=== PATIENT | male | born 1990 | race Caucasian/White ===

== ENCOUNTER 2017-01-02 09:44 | Emergency (ER) | payer OTHER ==
[2017-01-02] MEDS ORDERED: KETOROLAC 60 MG/2 ML VIAL IM STA (11:02)
--- NOTE | 2017-01-02 11:04 | ED ---
Neck Injury/Pain HPI - General Chief Complaint: Neck Pain/Injury Stated Complaint: neck and shoulder pain Time Seen by Provider: 01/02/17 10:06 Source: RN notes reviewed Mode of arrival: ambulatory Limitations: no limitations - History of Present Illness Initial Comments: Patient is a 26-year-old male presents to the emergency room for evaluation of neck pain. Patient states he woke up about 4 days ago with pain on the right side of his neck reading to his shoulder. Patient states the pain does not subside so he decided to come here for evaluation. Patient denies taking anything for his symptoms. Patient states he's having 7 out of 10 pain. Patient denies any tingling in his fingers. Patient states his pain is worse whenever he tries to move his shoulder move his neck from left to right. Patient denies any specific injury to his neck or shoulder. Patient denies any recent heavy lifting or changes in physical activity. - Related Data Previous Rx's Medication Instructions Recorded Naproxen [Naprosyn] 500 mg PO Q12HR PRN #20 tab 01/02/17 Orphenadrine [Norflex] 100 mg PO Q12H PRN #12 tablet.er 01/02/17 Allergies Allergy/AdvReac Type Severity Reaction Status Date / Time No Known Allergies Allergy Verified 01/02/17 10:10 Review of Systems ROS Statement: Those systems with pertinent positive or pertinent negative responses have been documented in the HPI. ROS Other: All systems not noted in ROS Statement are negative. Past Medical History Past Medical History: No Reported History History of Any Multi-Drug Resistant Organisms: None Reported Past Surgical History: No Surgical Hx Reported Past Psychological History: No Psychological Hx Reported Smoking Status: Never smoker Past Alcohol Use History: Occasional Past Drug Use History: None Reported General Exam - General Exam Comments Initial Comments: Sitting in exam room, no acute distress. Limitations: no limitations General appearance: alert, in no apparent distress Head exam: Present: atraumatic, normocephalic, normal inspection Eye exam: Present: normal appearance, PERRL, EOMI Pupils: Present: normal accommodation Neck exam: Present: normal inspection, tenderness (Tenderness on palpating over right trapezius muscle into the shoulder), full ROM Respiratory exam: Present: normal lung sounds bilaterally. Absent: respiratory distress Cardiovascular Exam: Present: regular rate, normal rhythm, normal heart sounds Extremities exam: Present: normal inspection Back exam: Present: normal inspection Neurological exam: Present: alert, oriented X3, CN II-XII intact, normal gait Psychiatric exam: Present: normal affect, normal mood Skin exam: Present: warm, dry, intact, normal color. Absent: rash Course Vital Signs 01/02/17 01/02/17 09:51 12:37 Temperature 97.6 F 98.5 F Pulse Rate 87 88 Respiratory 16 18 Rate Blood Pressure 126/68 170/81 O2 Sat by Pulse 97 96 Oximetry Medical Decision Making - Medical Decision Making Patient is a 26-year-old male presents emergency room for evaluation of right- sided neck pain. Symptoms consistent with muscle spasms. Place patient on muscle relaxers and him follow-up with his primary care provider. Patient has no neuro deficits at this time. Patient states she understands everything that was discussed with him. Return parameters discussed. Case discussed with Dr. Pink. - Radiology Data Radiology results: report reviewed, image reviewed Disposition Clinical Impression: Cervical muscle strain Disposition: HOME SELF-CARE Condition: Good Instructions: Cervical Strain (ED) Additional Instructions: Warm moist heat. Take pain medications as needed. Please follow up with primary care provider in 1-2 days. If any new symptom arises or symptoms worsen , return to ER as soon as possible. Prescriptions: Naproxen [Naprosyn] 500 mg PO Q12HR PRN #20 tab PRN Reason: Pain Orphenadrine [Norflex] 100 mg PO Q12H PRN #12 tablet.er PRN Reason: Pain Referrals: None,Stated [Primary Care Provider] - 1-2 days Time of Disposition: 12:27
--- NOTE | 2017-01-02 11:53 | XR ---
EXAMINATION TYPE: XR cervical spine comp DATE OF EXAM: 01/02/2017 CLINICAL HISTORY: pain COMPARISON: NONE TECHNIQUE: Frontal, lateral, oblique, swimmers, and open mouth view of the cervical spine are obtaine d. FINDINGS: The cervical spine is visualized in its entirety from C1 thru the top of T1 level. There i s reversal of the normal cervical lordosis which can be seen in patients with muscle spasticity. I do not see evidence for fracture or malalignment. The pre-vertebral soft tissue appears within normal l imits. Disc spaces are well preserved. The C1-C2 articulation is unremarkable on the open mouth view. The oblique images are within normal limits. IMPRESSION: No acute fracture or dislocation is seen in the cervical spine. Correlate for muscle spa sticity.
[2017-01-02 12:39] VITALS: BP 170/81; PULSE 88; RESP 18; TEMP 98.5
== END 2017-01-02 12:39 | disposition home or self-care (01) ==
LOC: EC 09:44
DX: S16.1XXA Strain of muscle, fascia and tendon at neck level, initial encounter (principal); X58.XXXA Exposure to other specified factors, initial encounter
CPT/HCPCS: 72050; 99283; 96372; J1885

== ENCOUNTER → 2021-02-19 | Outpatient (CLI) | payer OTHER ==
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
== END ==
LOC: SLEEP 15:13
PROVIDERS: ATTEND Internal Medicine Critical Care Medicine
DX: G47.10 Hypersomnia, unspecified (principal); E66.01 Morbid (severe) obesity due to excess calories; F51.12 Insufficient sleep syndrome; Z68.44 Body mass index [BMI] 60.0-69.9, adult
CPT/HCPCS: 99211

== ENCOUNTER → 2021-06-18 | Outpatient (CLI) | payer OTHER ==
[2021-06-18 14:10] VITALS: BP 146/89; PULSE 96; TEMP 98.3; BMI 61.9
--- NOTE | 2021-06-18 15:27 | P.HPBAR ---
Bariatric H&P - History & Physicial H&P Date: 06/18/21 History & Physicial: Visit/CC: initial clinic visit Patient initial contact: Initial weight: Initial weight in pounds: Height: 5 ft 8 in Initial BMI: Last weight: Current weight: 184.612 kg Current weight in pounds: 407.00 Current BMI: 61.9 [place] body weight (based on NIH guidelines): 69.853 kg Excess body weight loss: The patient is a 30 year-old M who presents for Bariatric Assessment. Patient here interested in sleeve gastrectomy. Patient has comorbidities including sleep apnea chronic back pain ulcer arthritis borderline diabetes mild reflux. No history of DVT or dysphagia. BMI 61. No tobacco use. Patient read wired complete twelve-month supervised weight loss. No prior surgeries. Review of Systems The patient denies any acute changes in vision or hearing, no dysphagia or o dynophagia, no chest pain or shortness of breath, no dysuria or hematuria, no headache, no runny nose, no rectal bleeding or melena, no unexplained weight loss Past Medical History Past Medical History: No Reported History History of Any Multi-Drug Resistant Organisms: None Reported Past Surgical History: No Surgical Hx Reported Smoking Status: Never smoker Surgical - Exam Vital Signs Temp Pulse BP 98.3 F 96 146/89 06/18/21 13:54 06/18/21 13:54 06/18/21 13:54 Physical exam: General: Well-developed, well-nourished HEENT: Normocephalic, sclerae nonicteric Abdomen: Nontender, nondistended Extremities: No edema Neuro: Alert and oriented Bariatric Assessment & Plan (1) Morbid obesity with BMI of 60.0-69.9, adult Narrative/Plan: 30-year-old male with morbid obesity and associated comorbidities. Patient is interested in sleeve gastrectomy. Risks, benefits, and expected weight loss of sleeve gastrectomy and gastric bypass discussed in detail. The risks of ble eding, infection, stenosis, stricture, leak, abscess, fistula formation, peritonitis, poor weight loss, reflux, vomiting, conversion to an open procedure, aborting sleeve gastrectomy, OH, PE, DVT, and were discussed. The patient understands and wishes to proceed. Patient would like to see dietitian at this time. This will be arranged. Patient will complete twelve- month supervised weight loss. Plan EGD towards the tail end of that supervised weight loss. Status: Acute Bariatric Checklist Checklist: Plan: Checklist: EGD: 1. Hiatal hernia: 2. H. Pylori: HgbA1c: Vitamin D: Smoking: Never smoker Primary care physician referral: Psychiatry clearance: Cardiology clearance: Sleep study: Diet journal: VTE risk score: VTE risk level: Rehab needs at discharge:
[2021-06-18 15:55] LABS: HCT 39.6 % (39.0-53.0); HGB 12.9 gm/dL (13.0-17.5); MCH 31.3 pg (25.0-35.0); MCHC 32.6 g/dL (31.0-37.0); MCV 95.7 fL (80.0-100.0); Mean Platelet Volume 8.4; Platelet Count 238 k/uL (150-450); RBC 4.14 m/uL (4.30-5.90); RDW 13.9 % (11.5-15.5); WBC 9.9 k/uL (3.8-10.6)
[2021-06-19 03:22] LABS: ALT 46 U/L (10-49); AST 37 U/L (14-35); African American GFR (CKD) 151.1 (60.0-200.0); Albumin 4.5 g/dL (3.8-4.9); Alkaline Phosphatase 68 U/L (41-126); BUN/Creat Ratio 12.21 Ratio (12.00-20.00); Carbon Dioxide 25.5 mmol/L (21.6-31.8); Chloride 99 mmol/L (96-109); Globulin 2.5 g/dL (1.6-3.3); Glucose 104 mg/dL (70-110); Iron 66 ug/dL (65-175); Non-African American GFR(CKD) 130.4 (60.0-200.0); Potassium 4.2 mmol/L (3.5-5.5); Sodium 140 mmol/L (135-145); Total Protein 6.9 g/dL (6.2-8.2)
[2021-06-20 10:58] LABS: Anabasine Urine <2.0 ng/mL (<2.0)
== END ==
LOC: BARWHC3 13:21
PROVIDERS: ATTEND Surgery
DX: E66.01 Morbid (severe) obesity due to excess calories (principal); M19.90 Unspecified osteoarthritis, unspecified site; K90.89 Other intestinal malabsorption; E55.9 Vitamin D deficiency, unspecified; Z68.44 Body mass index [BMI] 60.0-69.9, adult
CPT/HCPCS: 84425; 80053; 82607; 82746; 83540; 85027; 82306; 83036; 93005; 36415; G0480; G0463; 80323; 99211

== ENCOUNTER 2021-10-08 07:36 | Day surgery (SDC) | payer OTHER ==
[2021-10-04 12:03] VITALS: BMI 62.6
[~2021-10-08 07:36] MED LIST: LACTATED RINGERS 1,000 ML IV SCH; LIDOCAINE 1% (10MG/ML) FOR IV START INTRADERMA PRN
[2021-10-08 07:57] VITALS: RESP 18; TEMP 98
[2021-10-08] MEDS ORDERED: PROPOFOL 10 MG/ML 20 ML VIAL IV ONE (08:16)
[2021-10-08] MEDS ORDERED: MIDAZOLAM 2 MG/2 ML VIAL ONE (08:16)
[2021-10-08] MEDS ORDERED: KETAMINE 10 MG/ML 20 ML VIAL ONE (08:16)
[2021-10-08] MEDS ORDERED: LIDOCAINE 1% INJ 10MG/ML (20 ML MDV) ONE (08:16)
[2021-10-08 08:18] LABS: Glucose,Whole Blood 129 mg/dL (75-99)
--- NOTE | 2021-10-08 08:18 | P.GSHP ---
History of Present Illness H&P Date: 10/08/21 Chief Complaint: GERD, presurgical 31-year-old male here today for upper endoscopy. Patient being seen for possible weight loss surgery. Patient with mild reflux. No dysphagia. Past Medical History Past Medical History: Asthma, Diabetes Mellitus, GERD/Reflux, Sleep Apnea/CPAP/BIPAP Additional Past Medical History / Comment(s): Seasonal allergies. Edema BLE. Uses CPAP. History of Any Multi-Drug Resistant Organisms: None Reported Past Surgical History: No Surgical Hx Reported Past Anesthesia/Blood Transfusion Reactions: No Reported Reaction Additional Past Anesthesia/Blood Transfusion Reaction / Comment(s): no previous anesthesia Past Psychological History: No Psychological Hx Reported Smoking Status: Never smoker Past Alcohol Use History: None Reported Additional Past Alcohol Use History / Comment(s): No alcohol in 1 year Past Drug Use History: Marijuana Additional Drug Use History / Comment(s): Uses occ - Past Family History Mother Family Medical History: No Reported History Medications and Allergies Home Medications Medication Instructions Recorded Confirmed Type Ergocalciferol [Vitamin D2 (1250 1,250 mcg PO WEEKLY 10/04/21 10/04/21 History Mcg = [id number] Iu)] Phentermine HCl [Adipex-P] 37.5 mg PO DAILY 10/04/21 10/04/21 History metFORMIN HCL [Glucophage] 500 mg PO BID 10/04/21 10/04/21 History Allergies Allergy/AdvReac Type Severity Reaction Status Date / Time No Known Allergies Allergy Verified 10/04/21 11:42 Surgical - Exam Vital Signs Temp Pulse Resp BP Pulse Ox 98 F 101 H 18 173/86 97 10/08/21 07:55 10/08/21 07:55 10/08/21 07:55 10/08/21 07:55 10/08/21 07:55 Physical exam: General: Well-developed, well-nourished HEENT: Normocephalic, sclerae nonicteric Abdomen: Nontender, nondistended Extremities: No edema Neuro: Alert and oriented Assessment and Plan (1) GERD (gastroesophageal reflux disease) Narrative/Plan: Will proceed with upper endoscopy. Current Visit: Yes Status: Acute Code(s): K21.9 - GASTRO-ESOPHAGEAL REFLUX DISEASE WITHOUT ESOPHAGITIS SNOMED Code(s): 277541759
--- NOTE | 2021-10-08 08:26 | P.PCN ---
Date of Procedure: 10/08/21 Procedure(s) Performed: Preoperative Dx: GERD, presurgical Postoperative Dx: Mild gastritis, retained food Procedure: EGD with Bx Anesthesia: Sedation Endoscopist: Dr. Siddiqui Specimens: Antrum Endoscopic Procedure: The patient was on the endoscopy table in the left decubitus position. The Olympus gastroscope was inserted into the oropharynx and passed under direct visualization to the region of the third portion of the duodenum. From that point the scope was slowly withdrawn inspecting all surfaces carefully. There were no neoplastic inflammatory or polypoid lesions throughout the duodenum. The pylorus was widely patent. The stomach was carefully inspected. There was food seen throughout the stomach. The patient had mild gastritis. A biopsy of the antrum took place to rule out H. pylori. Retroflexion revealed a normal hiatus. The esophagus was then carefully examined. There were no neoplastic inflammatory or polypoid lesions throughout the visualized esophagus. The patient was then taken to the recovery room in stable condition per anesthesia guidelines. Recommendations: Await biopsy results. Continue presurgical supervised weight loss visits. Patient may have some degree of gastroparesis. This will be discussed with the patient.
[2021-10-08 08:47] VITALS: BP 122/68; PULSE 90
== END 2021-10-08 09:02 | disposition home or self-care (01) ==
LOC: ORWHC2ENDO 07:36
PROVIDERS: ATTEND Surgery
DX: K29.70 Gastritis, unspecified, without bleeding (principal); K31.89 Other diseases of stomach and duodenum; J45.909 Unspecified asthma, uncomplicated; E11.9 Type 2 diabetes mellitus without complications; G47.33 Obstructive sleep apnea (adult) (pediatric); K21.9 Gastro-esophageal reflux disease without esophagitis
CPT/HCPCS: 43239; 88305; J2250; J2001; J2704

== ENCOUNTER → 2022-01-10 | Outpatient (CLI) | payer OTHER ==
--- NOTE | 2022-01-10 10:13 | FL ---
EXAMINATION TYPE: FL UGI air DATE OF EXAM: 01/10/2022 COMPARISON: None HISTORY: Pre bariatric surgery TECHNIQUE: Double contrast technique is utilized to evaluate the esophagus and stomach. Exam is limit ed to upright views due to patient body habitus. FINDINGS: Esophagus dilates to normal caliber and has normal contour of the gastroesophageal junction . Gastroesophageal junction opens to normal caliber. No intraluminal or extrarenal defects of the eso phagus are evident. There are a few tertiary contractions in possible weeks secondary contractions wi thin the distal esophagus during the exam compatible some presbyesophagus. Upright imaging of the stomach was performed. Orientation appears normal. There is some free spill in to the duodenum. IMPRESSION: 1. Some mild presbyesophagus not excluded. Esophagus otherwise appears unremarkable. 2. Limited imaging over the stomach appears unremarkable.
--- NOTE | 2022-01-10 10:36 | US ---
EXAMINATION TYPE: US gallbladder DATE OF EXAM: 01/10/2022 COMPARISON: NONE CLINICAL HISTORY: R10 ABD PAIN, DYSPHAGIS [id number]. pre bariatric surgery, morbidly obese, no symptoms EXAM MEASUREMENTS: Liver Length: 25.8 cm Gallbladder Wall: 0.2 cm CBD: 0.6 cm Right Kidney: 13.1 x 6.1 x 7.0 cm Pancreas: wnl Liver: enlarged, heterogeneous and difficult to penetrate Gallbladder: wnl Evidence for sonographic Darby's sign: no CBD: wnl Right Kidney: hypoechoic area midline maybe normal versus other etiology IMPRESSION: 1. Hepatomegaly.
== END | disposition home or self-care (01) ==
LOC: RADUSWWP 08:16
PROVIDERS: ATTEND Surgery Plastic and Reconstructive Surgery
DX: Z01.818 Encounter for other preprocedural examination (principal); E66.01 Morbid (severe) obesity due to excess calories; R16.0 Hepatomegaly, not elsewhere classified
CPT/HCPCS: 74246; 76705

== ENCOUNTER → 2022-02-10 | Outpatient (CLI) | payer OTHER ==
[2022-02-10 11:13] VITALS: BMI 61.9
== END ==
LOC: BARWHC3 08:33
PROVIDERS: ATTEND Surgery Plastic and Reconstructive Surgery
DX: Z71.3 Dietary counseling and surveillance (principal); E66.01 Morbid (severe) obesity due to excess calories; Z68.44 Body mass index [BMI] 60.0-69.9, adult
CPT/HCPCS: 97804

== ENCOUNTER → 2022-12-17 | Outpatient (CLI) | payer OTHER ==
[2022-12-17 12:24] LABS: Partial Thromboplastin Time 26.3 sec (22.0-30.0)
[2022-12-17 15:07] LABS: HCT 40.1 % (39.6-50.0); HGB 13.1 g/dL (13.0-17.0); MCH 30.8 pg (27.0-32.0); MCHC 32.7 g/dL (32.0-37.0); MCV 94.1 fL (80.0-97.0); Mean Platelet Volume 11.4 fL (9.5-12.2); NRBC Per 100 WBC 0 /100 WBCS (0.0-0.0); Platelet Count 246 X 10*3/uL (140-440); RBC 4.26 X 10*6/uL (4.40-5.60); RDW 13.2 % (11.5-14.5); WBC 8.88 X 10*3/uL (4.50-10.00)
[2022-12-17 15:36] LABS: % Iron Saturation 15.64 (15.00-50.00); African American GFR (CKD) 154.2 (60.0-200.0); Albumin 4.3 g/dL (3.8-4.9); Albumin/Globulin Ratio 1.54 (1.60-3.17); Anion Gap 14.2 mmol/L (10.00-18.00); BUN/Creat Ratio 11.17 Ratio (12.00-20.00); Blood Urea Nitrogen 6.7 mg/dL (9.0-27.0); Calcium 9.2 mg/dL (8.7-10.3); Carbon Dioxide 24.8 mmol/L (20.0-27.5); Globulin 2.8 g/dL (1.6-3.3); Magnesium 1.8 mg/dL (1.5-2.4); Phosphorus 4.3 mg/dL (2.4-5.1); Potassium 4.1 mmol/L (3.5-5.5); Total Bilirubin 0.7 mg/dL (0.30-1.20); Total Protein 7.1 g/dL (6.2-8.2)
[2022-12-17 16:21] LABS: HDL Cholesterol 27.7 mg/dL (40.00-60.00); Prealbumin 16.8 mg/dL (18.0-42.0)
[2022-12-17 16:32] LABS: LDL Cholesterol,Direct Reflex 87.4 mg/dL (0.00-129.00)
[2022-12-18 14:16] LABS: Zinc, Serum 90 ug/dL (60-130)
[2022-12-19 07:53] LABS: Vit B1(Thiamine) 68 ug/L (38-122)
[2022-12-19 09:06] LABS: Vitamin A 28 ug/dL (38-106)
== END | disposition home or self-care (01) ==
LOC: LABWHC1 09:59
PROVIDERS: ATTEND Surgery Plastic and Reconstructive Surgery
DX: Z71.51 Drug abuse counseling and surveillance of drug abuser (principal); E66.01 Morbid (severe) obesity due to excess calories; E89.1 Postprocedural hypoinsulinemia; D50.8 Other iron deficiency anemias; E44.0 Moderate protein-calorie malnutrition; E55.9 Vitamin D deficiency, unspecified; K74.1 Hepatic sclerosis; N19 Unspecified kidney failure; K50.90 Crohn's disease, unspecified, without complications; E44.1 Mild protein-calorie malnutrition; E45 Retarded development following protein-calorie malnutrition; E46 Unspecified protein-calorie malnutrition; T56.894A Toxic effect of other metals, undetermined, initial encounter; R00.1 Bradycardia, unspecified; K91.2 Postsurgical malabsorption, not elsewhere classified
CPT/HCPCS: 84255; 84134; 84425; 80061; 80053; 82607; 82728; 82525; 82746; 83540; 83550; 83735; 84100; 84443; 84590; 84630; 85027; 85610; 85730; 83721; 82306; 83970; 83036; 93005; 36415; G0480; 80323

== ENCOUNTER → 2022-12-31 | Outpatient (CLI) | payer OTHER ==
[2022-12-31 13:58] VITALS: BP 166/80; PULSE 102; TEMP 97.8; BMI 60.3
--- NOTE | 2022-12-31 14:32 | P.BASOAP ---
Subjective Progress Note Date: 12/31/22 Highest weight 426 pounds. He has completed his medical supervised weight loss. He is looking into the sleeve. He has lost 30 pounds. Fidget, diet and fluids. He drinks 3 x 64 oz of fluid daily. He is drinking 60 grams of protein daily. Risks described. Objective - Vital Signs Vital signs: Vital Signs Temp 97.8 F 12/31/22 13:53 Pulse 102 H 12/31/22 13:53 Resp BP 166/80 12/31/22 13:53 Pulse Ox FiO2 Intake & Output 12/30/22 12/31/22 12/31/22 18:59 06:59 18:59 Weight 180.076 kg Assessment/Plan Plan: Date: 12/31/22 Initial Weight: Initial BMI: Current Weight: 180.076 kg Current BMI: 60.3 Type of Surgery: Total Volume in Band: Previous Volume: Volume Removed: Volume Added: Band Size:
== END ==
LOC: BARWHC3 13:35
PROVIDERS: ATTEND Surgery Plastic and Reconstructive Surgery
DX: E66.01 Morbid (severe) obesity due to excess calories (principal); Z68.44 Body mass index [BMI] 60.0-69.9, adult
CPT/HCPCS: 99211

== ENCOUNTER → 2023-01-19 | Outpatient (CLI) | payer OTHER | END | disposition home or self-care (01) | LOC: LABPAT 08:31 | PROVIDERS: ATTEND Surgery Plastic and Reconstructive Surgery | DX: Z01.812 Encounter for preprocedural laboratory examination (principal) ==

== ENCOUNTER 2023-01-26 08:30 | Inpatient (IN) | payer OTHER ==
[~2023-01-26 08:30] MED LIST changes: +CHLORHEXIDINE GLUCONATE 15 ML CUP MUCOUS MEM PRN; +DEXAMETHASONE SOD PHOSPHATE 4 MG/ML 1 ML VIAL IV ONE; +ENOXAPARIN 40 MG/0.4 ML SYRINGE SQ PRN; -LACTATED RINGERS 1,000 ML IV SCH; -LIDOCAINE 1% (10MG/ML) FOR IV START INTRADERMA PRN; +MIDAZOLAM 2 MG/2 ML VIAL IV PRN; +ONDANSETRON 4 MG/2 ML VIAL IVP ONE; +PANTOPRAZOLE 40 MG/10 ML VIAL IVP PRN; +SCOPOLAMINE 1 MG/72 HR PATCH TRANSDERM ONE; +ceFAZolin 3 GM in SODIUM CHLORIDE 0.9% 100 ML IVPB PRN
[2023-01-26] MEDS ORDERED: SCOPOLAMINE 1 MG/72 HR PATCH TRANSDERM STA (09:13)
[2023-01-26] MEDS ORDERED: GABAPENTIN 300 MG CAP PO STA (09:13)
[2023-01-26] MEDS ORDERED: droPERidol 5 MG/2 ML VIAL IVP ONE (09:13)
[2023-01-26] MEDS ORDERED: ACETAMINOPHEN TAB 500 MG TAB PO STA (09:13)
--- NOTE | 2023-01-26 09:20 | P.GSHP ---
History of Present Illness H&P Date: 01/26/23 CHIEF COMPLAINT: Morbid obesity HISTORY OF PRESENT ILLNESS: Luis Manuel Gonzales is a 32-year-old male who comes with lifelong morbid obesity. As result of morbid obesity, he has developed diabetes type 2, hypertensive heart disease, obstructive sleep apnea, hyperlipidemia, osteoarthritis of the hips and knees. He has completed medical supervised weight loss. He completed medical including cardiac assessment. He has completed psychological risk assessment. All surgical options were reviewed. He elected for gastric sleeve gastrectomy At height of 5 feet 8 inches, ideal body weight is 163 pounds. He comes in 384 pounds. Body mass index is 58.5. He is over 200 pounds overweight. PAST MEDICAL HISTORY: 1. Morbid obesity due to excess calories 2. Body mass index of 58.5 3. Osteoarthritis of the knees. 4. Osteoarthritis of the lower back. 5. Hypertensive heart disease. 6. Gastroesophageal reflux disease 7. Hyperlipidemia 8. Obstructive sleep apnea 9. Diabetes type 2 PAST SURGICAL HISTORY: 1. Upper endoscopy HOME MEDICATIONS: Reviewed ALLERGIES: Reviewed SOCIAL HISTORY: No current tobacco use. FAMILY HISTORY: No family history of ulcerative colitis disease or Crohn's disease. Family history of morbid obesity. No lupus in the family. No reports of stomach or esophageal cancer. REVIEW OF ORGAN SYSTEMS: CONSTITUTIONAL: At height of 5 feet 8 inches, her ideal body weight is 163 pounds. He comes in 384 pounds. HEENT: Denies any active troubles with vision or hearing. ENDOCRINE: Has diabetes. CARDIOVASCULAR: Past reports of palpitations or heart attacks or chest pain. RESPIRATORY: Has daytime somnolence. GASTROINTESTINAL: Denies any bright red blood per rectum. Has gastroesophageal reflux disease. MUSCULOSKELETAL: Has lower back pain and joint pain. Has osteoarthritis of the knees. NEURO: No headaches. No seizure disorders. PSYCH: Has depression. No suicidal ideation. RHEUMATOLOGIC: No lupus. No rheumatoid arthritis. HEMATOLOGIC: Denies any abnormal bleeding or bruising. No personal history of DVTs. SKIN: Has rash. No skin cancer. PHYSICAL EXAM: VITAL SIGNS: Height 5 foot 8 inches, weight 384 pounds. BMI 58.5 GENERAL: Well-developed in no acute distress. HEENT: No scleral icterus. Extraocular movements grossly intact. Hears conversational speech. No nasal drainage. NECK: Supple without lymphadenopathy. CHEST: Nonlabored respirations with equal bilateral excursions. CARDIOVASCULAR: Regular rate and regular rhythm. Distal 2+ pulses. ABDOMEN: Obese, soft, nontender, nondistended. MUSCULOSKELETAL: No clubbing, cyanosis. NEURO: No focal or lateralizing signs. Cranial nerves 2 through 12 grossly within normal limits. PSYCH: Appropriate affect. Alert and oriented to person, place and time. SKIN: Good skin turgor. Well perfused. ASSESSMENT: 1. Morbid obesity due to excess calories 2. Body mass index of 58.5 3. Osteoarthritis of the knees. 4. Osteoarthritis of the lower back. 5. Hypertensive heart disease. 6. Gastroesophageal reflux disease 7. Hyperlipidemia 8. Obstructive sleep apnea 9. Diabetes type 2 PLAN: 1. Bariatric options between a sleeve, band and a Aidan-en-Y gastric bypass were reviewed in detail. The patient elected for sleeve gastrectomy. Robotic assisted approach described. 2. The [place] [facility] Data was also reviewed with benefits and risks as described. 3. An 8 page second-generation bariatric consent form was reviewed in detail including potential of bleeding, infection, leaks, adequate weight loss, nutritional deficiencies which the patient demonstrated understanding of the risks. 4. A 2 week high-protein low caloric 800 kcal diet described to address hepatomegaly. 5. Preoperative labs including complete metabolic panel and CBC with type and screen recommended. 6. DVT prophylaxis per [place] [facility]. 7. Antibiotic prophylaxis. 8. Inpatient hospitalization anticipated for more than 2 nights. 9. All questions and concerns were addressed with the patient. 10. She is at elevated risk for perioperative complications secondary to pre- existing diabetes type 2, obstructive sleep apnea, pre-existing coronary artery disease. 11. Overall, patient has expressed understanding of bariatric care including postoperative diet and commitment of lifestyle. Patient should benefit from surgical intervention for correction of her morbid obesity. Past Medical History Past Medical History: Asthma, Diabetes Mellitus, Hyperlipidemia, Osteoarthritis (OA), Sleep Apnea/CPAP/BIPAP Additional Past Medical History / Comment(s): No medications needed for Asthma. CPAP use. History of Any Multi-Drug Resistant Organisms: None Reported Past Surgical History: No Surgical Hx Reported Additional Past Surgical History / Comment(s): EGD. Past Anesthesia/Blood Transfusion Reactions: Motion Sickness Past Psychological History: No Psychological Hx Reported Smoking Status: Never smoker Past Alcohol Use History: Occasional Past Drug Use History: None Reported - Past Family History Mother Family Medical History: No Reported History Medications and Allergies Home Medications Medication Instructions Recorded Confirmed Type metFORMIN HCL [Glucophage] 500 mg PO BID 10/04/21 01/21/23 History Multivitamins, Thera [Multivitamin 1 tab PO DAILY 12/31/22 01/21/23 History (formulary)] Allergies Allergy/AdvReac Type Severity Reaction Status Date / Time No Known Allergies Allergy Verified 01/21/23 11:20
[2023-01-26] MEDS ORDERED: BUPIVACAINE (PF) 0.25% 30 ML VIAL SQ ONE ×2 (10:07→11:19)
[2023-01-26] MEDS ORDERED: NEOSTIGMINE 1 MG/ML 10 ML VIAL ONE (10:40)
[2023-01-26] MEDS ORDERED: HYDROmorphone (PF) 1 MG/ML ONE (10:40)
[2023-01-26] MEDS ORDERED: GLYCOPYRROLATE 0.2 MG/ML 2 ML VIAL ONE (10:40)
[2023-01-26] MEDS ORDERED: fentaNYL (PF) 50 MCG/ML 2 ML AMP ONE (10:40)
[2023-01-26] MEDS ORDERED: ROCURONIUM 10 MG/ML (5 ML VIAL) IV ONE (10:40)
[2023-01-26] MEDS ORDERED: LIDOCAINE 2% INJ 20 MG/ML (2 ML VIAL) ONE (10:40)
[2023-01-26] MEDS ORDERED: PROPOFOL 10 MG/ML 20 ML VIAL IV ONE (10:40)
[2023-01-26] MEDS ORDERED: KETAMINE 10 MG/ML 20 ML VIAL ONE (10:40)
[2023-01-26] MEDS ORDERED: SUCCINYLCHOLINE CHLORIDE 200 MG/10 ML VIAL IV ONE (10:40)
[2023-01-26 10:43] LABS: Glucose,Whole Blood 90 mg/dL (70-110)
[2023-01-26] MEDS: LACTATED RINGERS 1,000 ML IV SCH (10:46)
[2023-01-26 10:50] LABS: Basophils % (A) 0 %; Eosinophils # (A) 0.1 k/uL (0-0.7); Eosinophils % (A) 2 %; HCT 39.3 % (39.0-53.0); HGB 13.5 gm/dL (13.0-17.5); Lymphocytes # (A) 2.1 k/uL (1.0-4.8); Lymphocytes % (A) 30 %; MCH 31.3 pg (25.0-35.0); MCHC 34.4 g/dL (31.0-37.0); Mean Platelet Volume 9.3; Monocytes # (A) 0.4 k/uL (0-1.0); Monocytes % (A) 6 %; Neutrophils # (A) 4.2 k/uL (1.3-7.7); Neutrophils % (A) 61 %; Platelet Count 215 k/uL (150-450); RBC 4.32 m/uL (4.30-5.90); RDW 13.8 % (11.5-15.5)
[2023-01-26 11:04] LABS: ALT 41 U/L (4-49); AST 40 U/L (17-59); African American GFR (CKD) >90 (>60 ml/min/1.73 sqM); Albumin 4.6 g/dL (3.5-5.0); Alkaline Phosphatase 72 U/L (38-126); Anion Gap 12 mmol/L; Blood Urea Nitrogen 9 mg/dL (9-20); Calcium 9.1 mg/dL (8.4-10.2); Carbon Dioxide 24 mmol/L (22-30); Chloride 101 mmol/L (98-107); Glucose 87 mg/dL (74-99); Non-African American GFR(CKD) >90 (>60 ml/min/1.73 sqM); Potassium 3.9 mmol/L (3.5-5.1); Sodium 137 mmol/L (137-145); Total Bilirubin 1.3 mg/dL (0.2-1.3); Total Protein 7.4 g/dL (6.3-8.2)
[2023-01-26] MEDS ORDERED: LACTATED RINGERS 1,000 ML IV ONE (12:51)
[2023-01-26] MEDS ORDERED: ALBUTEROL NEBULIZED 2.5 MG/3 ML INHALATION ONE (13:54)
[2023-01-26] MEDS: HYDROmorphone 0.5 MG/0.5 ML SYRINGE IVP PRN ×2 (14:30→16:03)
[2023-01-26] MEDS ORDERED: ONDANSETRON 4 MG/2 ML VIAL IVP ONE (15:45)
[2023-01-26] MEDS ORDERED: diphenhydrAMINE 50 MG/ML 1 ML VIAL IVP PRN (17:40)
[2023-01-26] MEDS ORDERED: NALOXONE 0.4 MG/ML 1 ML VIAL IV PRN (17:40)
[2023-01-26] MEDS ORDERED: DEXTROSE 50% SYRINGE 50 ML IVP PRN ×2 (17:42)
[2023-01-26] MEDS ORDERED: HYDROmorphone 1 MG/ML 1 ML SYRINGE IVP PRN (17:43)
--- NOTE | 2023-01-26 17:49 | P.OP ---
Date of Procedure: 01/26/23 Description of Procedure: SURGEON: MIRIAN HOYT MD PREOPERATIVE DIAGNOSES: 1. Morbid obesity due to excess calories 2. Body mass index of 56.2 3. Obstructive sleep apnea 4. Osteoarthritis of the lower back 5. Diabetes type 2, [id number]-iqntzzoow 6. Hypertensive heart disease POSTOPERATIVE DIAGNOSES: 1. Morbid obesity due to excess calories 2. Body mass index of 56.2 3. Obstructive sleep apnea 4. Osteoarthritis of the lower back 5. Diabetes type 2, [id number] 6. Hypertensive heart disease 7. Hepatomegaly with fatty liver disease OPERATION: 1. Robotic assisted daVinci Xi laparoscopic sleeve gastrectomy with 40-Guatemalan bougie, multiport. 2. Intraoperative esophagogastroduodenoscopy. ANESTHESIA: Gen. local anesthetic ESTIMATED BLOOD LOSS: 10 mL SPECIMENS REMOVED: Sleeve gastrectomy COMPLICATIONS: None. FINDINGS: 1. Negative intraoperative esophagogastrojejunoscopy leak test. 2. No large hiatus hernia. 3. Total of 7 staplers used including 3 - 60 mm green and 4 - 60 mm blue robot bethany used to create the gastric sleeve. 4. Sleeve gastrectomy 39 x 5 cm, extremely long stomach INDICATIONS: Luis Manuel Mckeon is a 32-year-old male who comes with morbid obesity. He has completed bariatric risk assessment including dietary surveillance and counseling, medical risk assessment and psychological assessment. At height of 5 feet 8 inches, ideal body weight is 163 pounds. His weight is 387 pounds, BMI 56.2. All surgical options for morbid obesity had been described using the [place] bariatric surgery collaborative comorbidity resolution including complication risk score. A second-generation bariatric consent form was described in detail including the possibility of protein malnutrition, leaks, gastric stricture, venous thrombosis, gastroesophageal reflux disease, need for further surgery for which he demonstrated understan ding. Benefits and risks of the procedure were described at length. Informed consent was obtained. DESCRIPTION: The patient was brought into the operating room theater. Preoperatively he had received Lovenox subcutaneously for DVT prophylaxis. Additionally he had Peridex oral solution as an oral decontaminant. After general induction, the abdomen was prepped and draped in standard sterile fashion. An Ioban draping was placed along the abdomen. No liu catheter was placed. A robotic da Marc Xi system was prepped and primed. At 15 cm from the xiphoid, proposed port sites were marked with indelible marker along the anterior axillary line bilaterally, mid axillary line bilaterally with each ports were marked 10 to 15 cm from each other. The election assistant port was marked along the left lateral abdominal wall. The robotic stapler port was marked for the right midclavicular line. A 5 mm 0 degrees laparoscopic trocar entry was performed along the left upper quadrant. The abdomen was insufflated to 15 mmHg pressure he tolerated well. Diagnostic laparoscopy demonstrated no injury to bowel, viscera, or mesentery. The liver surface was remarkable for hepatomegaly and fatty liver disease. No injury had occurred to the small bowel or viscera. Along the hiatus no recurrent hiatal hernia was found. A 8 mm port was placed along the right upper abdominal wall after exchanging the 5 mm port. A separate 8 mm port was placed along the left lateral abdominal wall. Please note that the ports were placed at least 20 cm away from the target anatomy. Care was taken to check each robotic arms were safely away from collision with the bed or the patient. At the epigastrium, a medium sized Catrachito liver retractor was placed under direct visualization with the Iron Chiseler Head placed under the right shoulder of the patient. Next, 12-mm robot stapler port was placed along the right upper quadrant. The camera 8-mm port was maintained along the epigastrium. The patient was repositioned in reverse Trendelenburg position at 21-degrees after lowering the bed. The robot was docked along the left side of the patient. Using a grasper for arm 4, a veseel sealer for arm 3, including grasper for arm 1, the robotic system was docked and primed as described. Instruments were interchanged by the election assistant for stapler loads. The camera was placed at 30-degrees down. I had sat at the console. The pylorus was identified and 6 cm proximally along the greater curvature of the stomach, the short gastrics were mobilized upwards to the angle of His using a vessel sealer. Hemostasis was excellent during this portion of the procedure. Next, the upper pole of the stomach was adherent to the left carina, which was gently dissected free using atraumatic grasper. I placed a 40-Guatemalan blunted tip bougie into the stomach. Robotic stapler green loads 60 mm x 3 and 4 x 60 mm blue loads were used to create the sleeve. Initial firing was across the antrum of the stomach towards the angle of His. The staple line was completely hemostatic and linear without corkscrewing. Hemostasis was excellent. The space from the angularis incisura of the sleeve was approximately 4 cm. I then went to the head of the bed to perform the intraoperative esophagogastroduodenoscopy leak test. The upper pole of the stomach was bathed using normal saline solution. The scope was withdrawn with careful inspection along the staple line for which no leaks were found along the entire length. Additionally, the sleeve was completely hemostatic without any encroachment along the angularis incisura. Its topology was a soft "J". No stricture was encountered upon placement of the scope. The GI tract was desufflated. The patient tolerated this portion of the procedure well. The scope was completely withdrawn. The robot was undocked. I then rescrubbed into case, whereby the irrigation fluid was aspirated from the abdominal cavity. Tisseel fibrin sealant was placed along the staple length. Once dried the Catrachito liver retractor was removed. Attention was now brought to removal of the specimen. The distal end of the sleeve gastrectomy specimen was brought out through the 12 mm port at the left upper quadrant. The specimen was gently removed en total, corresponding to 39 cm x 5 cm sleeve gastrectomy specimen. No contamination had occurred during this process. All instruments and pneumoperitoneum including irrigation fluid was removed from the abdominal cavity. The 12 mm port site was irrigated with warm normal saline solution and diluted hydron peroxide. The 12-mm port site was reapproximated using 0 Vicryl and Narayan-Aileen of the left upper quadrant. The final incisions were closed using subcuticular interrupted suture of 4-0 Monocryl. Dermabond was applied to the skin once the skin had been cleansed. OptiFoam dressing was placed along the stomach extraction site. At the end of the procedure, needle, sponge, and instrument count was verified correct by the surgical specialist. The patient was taken to the postanesthesia care unit in stable condition. He had tolerated the procedure well. Intraoperative films and findings were reviewed with the patient's family.
[2023-01-26] MEDS ORDERED: fentaNYL PCA 500 MCG/50 ML BAG IV SCH (18:00)
[2023-01-26] MEDS: INSULIN ASPART (NovoLOG) 100 UNIT/ML VIAL SQ SCH ×2 (18:17→20:56)
[2023-01-26] MEDS ORDERED: SODIUM CHLORIDE 0.9% 1,000 ML IV ONE (18:18)
[2023-01-26 18:24] LABS: Glucose,Whole Blood 172 mg/dL (70-110)
[2023-01-26] MEDS ORDERED: ceFAZolin 3 GM in SODIUM CHLORIDE 0.9% 100 ML IVPB SCH (19:00)
[2023-01-26] MEDS: ACETAMINOPHEN IV (For NPO) 1,000 MG in EMPTY BAG 1 BAG IVPB SCH (19:32)
[2023-01-26] MEDS: ONDANSETRON 4 MG/2 ML VIAL IVP SCH (19:33)
[2023-01-26] MEDS: SODIUM CHLORIDE 0.9% 1,000 ML IV SCH (19:39)
[2023-01-26] MEDS: METOCLOPRAMIDE 5 MG/ML 2 ML VIAL IVP SCH (19:39)
[2023-01-26] MEDS ORDERED: DEXAMETHASONE SOD PHOSPHATE 10 MG/ML 1 ML VIAL IVP ONE (20:00)
[2023-01-26] MEDS: SIMETHICONE 80 MG CHEWABLE PO SCH (20:17)
[2023-01-26] MEDS: HYOSCYAMINE ORAL DROPS 1.875 MG/15 ML BOTTLE PO SCH (20:18)
[2023-01-26 20:53] LABS: Glucose,Whole Blood 138 mg/dL (70-110)
[2023-01-26] MEDS: ALBUTEROL NEBULIZED 2.5 MG/3 ML INHALATION SCH (21:14)
[2023-01-26] MEDS: PANTOPRAZOLE 40 MG/10 ML VIAL IV SCH (22:02)
[2023-01-27] MEDS: SIMETHICONE 80 MG CHEWABLE PO SCH ×3 (00:08→12:43)
[2023-01-27] MEDS: HYOSCYAMINE ORAL DROPS 1.875 MG/15 ML BOTTLE PO SCH ×3 (00:09→12:45)
[2023-01-27] MEDS: METOCLOPRAMIDE 5 MG/ML 2 ML VIAL IVP SCH ×3 (00:09→12:42)
[2023-01-27] MEDS: ONDANSETRON 4 MG/2 ML VIAL IVP SCH ×3 (00:09→12:43)
[2023-01-27] MEDS: ACETAMINOPHEN IV (For NPO) 1,000 MG in EMPTY BAG 1 BAG IVPB SCH ×3 (00:09→12:44)
[2023-01-27] MEDS: SODIUM CHLORIDE 0.9% 1,000 ML IV SCH ×3 (01:15→13:40)
[2023-01-27 02:10] VITALS: TEMP 97.9
[2023-01-27 06:02] LABS: Glucose,Whole Blood 127 mg/dL (70-110)
[2023-01-27] MEDS: LACTATED RINGERS 1,000 ML IV SCH (06:03)
[2023-01-27] MEDS: INSULIN ASPART (NovoLOG) 100 UNIT/ML VIAL SQ SCH ×2 (06:03→12:30)
[2023-01-27] MEDS ORDERED: 0.9% NACL WITH KCL 20 MEQ/L 1,000 ML IV SCH (08:00)
[2023-01-27] MEDS: ALBUTEROL NEBULIZED 2.5 MG/3 ML INHALATION SCH ×3 (08:57→16:44)
[2023-01-27] MEDS: PANTOPRAZOLE 40 MG/10 ML VIAL IV SCH (08:58)
[2023-01-27] MEDS ORDERED: ENOXAPARIN 40 MG/0.4 ML SYRINGE SQ SCH (09:00)
[2023-01-27 11:05] LABS: Basophils # (A) 0.01 X 10*3/uL (0.00-0.10); Basophils % (A) 0.1 %; Eosinophils # (A) 0 X 10*3/uL (0.04-0.35); Eosinophils % (A) 0 %; HCT 39.9 % (39.6-50.0); HGB 13.4 d/dL (12.0-15.0); Lymphocytes # (A) 1.01 X 10*3/uL (0.90-5.00); Lymphocytes % (A) 9.2 %; MCH 31.7 pg (27.0-32.0); MCHC 33.6 d/dL (32.0-37.0); MCV 94.3 FL (80.0-97.0); Monocytes # (A) 0.27 X 10*3/uL (0.20-1.00); Monocytes % (A) 2.5 %; NRBC Per 100 WBC 0 X 10*3/uL (0.00-0.01); Neutrophils % (A) 87.7 %; Platelet Count 246 X 10*3/uL (140-440); RBC 4.23 X 10*6/uL (4.40-5.60); RDW 13.1 % (11.5-14.5); WBC 10.94 X 10*3/uL (4.50-10.00)
[2023-01-27 11:13] LABS: Blood Urea Nitrogen 7.1 mg/dL (9.0-27.0); Calcium 9.1 mg/dL (8.7-10.3); Carbon Dioxide 20.8 mmol/L (21.6-31.8); Chloride 102 mmol/L (96-109); Phosphorus 3.1 mg/dL (2.4-5.1); Potassium 4.5 mmol/L (3.5-5.5); Sodium 138 mmol/L (135-145)
[2023-01-27 11:28] LABS: Glucose,Whole Blood 134 mg/dL (70-110)
[2023-01-27 11:37] VITALS: BMI 56.2
[2023-01-27 14:05] VITALS: BP 145/84; RESP 19
--- NOTE | 2023-01-27 14:24 | FL ---
EXAMINATION TYPE: FL UGI DATE OF EXAM: 01/27/2023 1:42 PM CLINICAL INDICATION:Male, 32 years old with history of Post Op Bariatric Surgery; COMPARISON: None TECHNIQUE: Limited single contrast UGI study is performed with Isovue-370. A total of 8 seconds of fl uoroscopic time was utilized during procedure and 49 images obtained. DAP: 6938.83 mGym2 FINDINGS: The stomach demonstrates a postsurgical morphology. No extravasation of contrast identifie d. No evidence of mass or ulcer disease. The duodenal bulb and sweep are unremarkable. IMPRESSION: Postsurgical changes without evidence of contrast extravasation.
--- NOTE | 2023-01-27 15:22 | P.DS ---
Providers Date of admission: 01/26/23 09:11 Expected date of discharge: 01/27/23 Attending physician: Stacey Beckham Primary care physician: Stated None Hospital Course: Discharge diagnosis 1. Morbid obesity due to excess calories 2. Body mass index of 56.2 3. Obstructive sleep apnea 4. Osteoarthritis of the lower back 5. Diabetes type 2, [id number]-[id number] 6. Hypertensive heart disease 7. Hepatomegaly with fatty liver disease Hospital course This is a 32-year-old male with a known history of morbid obesity. He is status post robotic-assisted laparoscopic sleeve gastrectomy. Upper GI shows no evidence of contrast extravasation. Patient reports his pain is controlled. He is tolerating diet. He has been up and ambulating. He is afebrile. He denies any difficulty urinating. He is stable for discharge. Please refer to chart for any further details. Physician [employer] note has been reviewed by physician. Signing provider agrees with the documented findings, assessment, and plan of care. Patient Condition at Discharge: Stable Plan - Discharge Summary Discharge Rx Participant: No New Discharge Prescriptions: New bisacodyL [Dulcolax] 5 mg PO DAILY PRN #10 tab PRN Reason: Constipation Simethicone 40 mg/0.6 ml Drops [Mylicon Drops] 40 mg PO PCHS PRN #30 ml PRN Reason: Gas Ondansetron Odt [Zofran Odt] 4 mg PO Q8HR PRN #9 tab PRN Reason: Nausea Acetaminophen Tab [Tylenol] 1,000 mg PO Q6HR PRN #30 tablet PRN Reason: Pain Omeprazole [PriLOSEC] 40 mg PO DAILY #30 cap Continue metFORMIN HCL [Glucophage] 500 mg PO BID Discontinued Multivitamins, Thera [Multivitamin (formulary)] 1 tab PO DAILY Discharge Medication List metFORMIN HCL [Glucophage] 500 mg PO BID 10/04/21 [History] Acetaminophen Tab [Tylenol] 1,000 mg PO Q6HR PRN #30 tablet 01/27/23 [Rx] Omeprazole [PriLOSEC] 40 mg PO DAILY #30 cap 01/27/23 [Rx] Ondansetron Odt [Zofran Odt] 4 mg PO Q8HR PRN #9 tab 01/27/23 [Rx] Simethicone 40 mg/0.6 ml Drops [Mylicon Drops] 40 mg PO [facility] PRN #30 ml 01/27/23 [Rx] bisacodyL [Dulcolax] 5 mg PO DAILY PRN #10 tab 01/27/23 [Rx] Follow up [facility]ment(s[facility] Activity/Diet/Wound Care/Special Instructions: Liquid diet only for 2 weeks No lifting over 4 pounds in 4 weeks May Shower. No soaking in bath tubs for 2 weeks Please notify your surgeon if you develop nausea and vomiting including new onset of abdominal pain. Continue to use incentive spirometry to prevent pneumonias. Please continue to ambulate at home to prevent blood clots in legs. Follow-up at the bariatric center. May shower. Dressings to be discontinued by surgeon in the office. Drink 64 oz of fluid daily. Start protein shakes on . Notify bariatric center for temp over 101.0, increased pain, drainage from incisions. No straws or carbonated beverages. Liquid diet only. Sugar content should be less than 6 g to avoid dumping syndrome. Take MOM for constipation. CRUSH, OPEN, OR CUT TABLETS LARGER THAN A SIZE OF A TIC TAC Hold on taking vitamins until seen by surgeon Discharge Disposition: HOME SELF-CARE
[2023-01-27 15:31] VITALS: PULSE 96
[2023-01-27 16:27] LABS: Glucose,Whole Blood 129 mg/dL (70-110)
== END 2023-01-27 17:09 | disposition home or self-care (01) | DRG 403 ==
LOC: 2ORMAIN 09:11 → 4SSUR 15:43
PROVIDERS: ADMIT Surgery Plastic and Reconstructive Surgery; ATTEND Surgery Plastic and Reconstructive Surgery
PROC: 8E0W4CZ Robotic Assisted Procedure of Trunk Region, Percutaneous Endoscopic Approach (ICD-10-PCS; 2023-01-26)
PROC: 0DB64Z3 Excision of Stomach, Percutaneous Endoscopic Approach, Vertical (ICD-10-PCS; principal; 2023-01-26 10:30)
DX: E66.01 Morbid (severe) obesity due to excess calories (principal); R16.0 Hepatomegaly, not elsewhere classified; I11.9 Hypertensive heart disease without heart failure; K76.0 Fatty (change of) liver, not elsewhere classified; E11.9 Type 2 diabetes mellitus without complications; G47.33 Obstructive sleep apnea (adult) (pediatric); E78.5 Hyperlipidemia, unspecified; M16.0 Bilateral primary osteoarthritis of hip; M17.0 Bilateral primary osteoarthritis of knee; M47.816 Spondylosis without myelopathy or radiculopathy, lumbar region; K21.9 Gastro-esophageal reflux disease without esophagitis; Z68.43 Body mass index [BMI] 50.0-59.9, adult; Z79.84 Long term (current) use of oral hypoglycemic drugs; Z84.89 Family history of other specified conditions
CPT/HCPCS: 36415; 74240; 80051; 80053; 82310; 82565; 83036; 83735; 84100; 84520; 85025; 86850; 86900; 86901; 88307; 94640; 94760

== ENCOUNTER → 2023-01-30 | Outpatient (CLI) | payer OTHER ==
[2023-01-30 09:36] VITALS: BP 155/81; PULSE 80; RESP 16; TEMP 98.2
== END ==
LOC: PROCWHC3 09:29
PROVIDERS: ATTEND Surgery Plastic and Reconstructive Surgery
DX: E86.0 Dehydration (principal)

== ENCOUNTER → 2023-01-30 | Outpatient (CLI) | payer OTHER ==
--- NOTE | 2023-01-30 09:27 | P.BASOAP ---
Subjective Progress Note Date: 01/30/23 CHIEF COMPLAINT: Morbid obesity, status post sleeve gastrectomy HISTORY OF PRESENT ILLNESS: Luis Manuel Gonzales is a 32-year-old male status post sleeve gastrectomy 01/26/2023. He is postop day 4. He reports nausea and dark urine. He reports appropriate chest pressure with swallowing liquids. No fevers or chills. Reports appropriate left upper quadrant pain. He is tolerating liquids. At height of 5 feet 8 inches, ideal body weight is 163 pounds. He comes in 369 pounds from 384 pounds, 1 week ago. He lost 15 pounds in 1 week. Lifetime weight loss 38 pounds. Highest weight 407 pounds, BMI 62.0. Percent excess weight loss 16%. He is over 206 pounds overweight. PHYSICAL EXAM: VITAL SIGNS: Height 5 foot 8 inches, weight 369 pounds. BMI 56.2 GENERAL: Well-developed in no acute distress. HEENT: No scleral icterus. Extraocular movements grossly intact. Hears conversational speech. No nasal drainage. NECK: Supple without lymphadenopathy. CHEST: Nonlabored respirations with equal bilateral excursions. CARDIOVASCULAR: Regular rate and regular rhythm. Distal 2+ pulses. ABDOMEN: Dressing discontinued. No cephalad or sign of infection. Appropriate left upper quadrant pain. MUSCULOSKELETAL: No clubbing, cyanosis. NEURO: No focal or lateralizing signs. Cranial nerves 2 through 12 grossly within normal limits. PSYCH: Appropriate affect. Alert and oriented to person, place and time. SKIN: Good skin turgor. Well perfused. Final Pathologic Diagnosis PORTION OF STOMACH, SLEEVE GASTRECTOMY: Benign gastric tissue with focal chronic gastritis and mucosal congestion. Morbid obesity clinically. No Helicobacter organisms seen on H+E staining. ASSESSMENT: 1. Morbid obesity due to excess calories 2. Body mass index of 62.0 down to 56.2 3. Osteoarthritis of the knees. 4. Osteoarthritis of the lower back. 5. Hypertensive heart disease. 6. Gastroesophageal reflux disease 7. Hyperlipidemia 8. Obstructive sleep apnea 9. Diabetes type 2 10. Status post sleeve gastrectomy 11. Dehydration PLAN: 1. Recommend IV fluid hydration for dehydration and signs of nausea including dark urine 2. Follow-up bariatric Center 1 week 3. Start protein shakes 4. Signs of dehydration includes headaches, nausea, dark urine reviewed 5. Time of recovery 4 weeks prior to return to work 6. May start driving Assessment/Plan Plan: Date: Initial Weight: Initial BMI: Current Weight: Current BMI: Type of Surgery: Total Volume in Band: Previous Volume: Volume Removed: Volume Added: Band Size:
[2023-01-30 09:46] VITALS: BP 155/81; PULSE 80; RESP 13; TEMP 98.9; BMI 55.4
== END ==
LOC: BARWHC3 08:56
PROVIDERS: ATTEND Surgery Plastic and Reconstructive Surgery
DX: E66.01 Morbid (severe) obesity due to excess calories (principal); Z68.43 Body mass index [BMI] 50.0-59.9, adult; Z98.84 Bariatric surgery status; M17.9 Osteoarthritis of knee, unspecified; I10 Essential (primary) hypertension; K21.9 Gastro-esophageal reflux disease without esophagitis; G47.33 Obstructive sleep apnea (adult) (pediatric); E11.9 Type 2 diabetes mellitus without complications; E86.0 Dehydration; E78.5 Hyperlipidemia, unspecified; Z79.84 Long term (current) use of oral hypoglycemic drugs
CPT/HCPCS: 99211

== ENCOUNTER → 2023-05-20 | Outpatient (CLI) | payer OTHER ==
[2023-05-20 14:45] VITALS: BP 127/68; PULSE 69; TEMP 98.4; BMI 47.5
--- NOTE | 2023-05-20 15:10 | P.BASOAP ---
Subjective Progress Note Date: 05/20/23 Off omeprazole. He is off Metformin. NO GERD. Do labs. Wants to get to 300 pounds in 1 month. Protein intake high at 120 g daily for height. Recommend decrease protein to 80-90 g. Excess protein may slow weight loss. Objective - Vital Signs Vital signs: Vital Signs Temp 98.4 F 05/20/23 14:27 Pulse 69 05/20/23 14:27 Resp BP 127/68 05/20/23 14:27 Pulse Ox FiO2 Intake & Output 05/19/23 05/20/23 05/20/23 18:59 06:59 18:59 Weight 141.974 kg Assessment/Plan Plan: Date: 05/20/23 Initial Weight: Initial BMI: Current Weight: 141.974 kg Current BMI: 47.5 Type of Surgery: Total Volume in Band: Previous Volume: Volume Removed: Volume Added: Band Size:
[2023-05-20 17:02] LABS: Prothrombin Time 10.9 sec (10.0-12.5)
[2023-05-20 20:50] LABS: % Iron Saturation 16.98 (15.00-50.00); ALT 16 U/L (10-49); AST 17 U/L (14-35); Albumin 4.5 d/dL (3.8-4.9); Albumin/Globulin Ratio 1.96 Ratio (1.60-3.17); Alkaline Phosphatase 75 U/L (41-126); BUN/Creat Ratio 15.14 Ratio (12.00-20.00); Blood Urea Nitrogen 10.6 mg/dL (9.0-27.0); Calcium 9.4 mg/dL (8.7-10.3); Carbon Dioxide 26.4 mmol/L (21.6-31.8); Chloride 101 mmol/L (96-109); Chol/HDL Ratio 6.32 Ratio; Globulin 2.3 d/dL (1.6-3.3); Glucose 86 mg/dL (70-110); Iron 63 UG/DL (65-175); LDL Cholesterol,Calculated 122.7 mg/dL (0.0-131.0); Magnesium 1.8 mg/dL (1.5-2.4); Phosphorus 3.9 mg/dL (2.4-5.1); Potassium 4.2 mmol/L (3.5-5.5); Sodium 141 mmol/L (135-145); Total Bilirubin 0.5 mg/dL (0.3-1.2); Total Iron Binding Capacity 371 UG/DL (228-460); Total Protein 6.8 d/dL (6.2-8.2)
[2023-05-21 05:42] LABS: HGB 13.6 d/dL (13.0-17.0); MCH 30.3 pg (27.0-32.0); MCHC 32.4 d/dL (32.0-37.0); MCV 93.5 FL (80.0-97.0); Mean Platelet Volume 12.7 FL (9.5-12.2); NRBC Per 100 WBC 0 X 10*3/uL (0.00-0.01); Platelet Count 200 X 10*3/uL (140-440); Prealbumin 18.6 mg/dL (18.0-42.0); RBC 4.49 X 10*6/uL (4.40-5.60); RDW 12.7 % (11.5-14.5); WBC 8.81 X 10*3/uL (4.50-10.00)
[2023-05-21 15:27] LABS: Zinc, Serum 86 ug/dL (60-130)
[2023-05-22 06:11] LABS: Vitamin A 32 ug/dL (38-106)
[2023-05-22 06:42] LABS: Vit B1(Thiamine) 52 ug/L (38-122)
== END ==
LOC: BARWHC3 14:01
PROVIDERS: ATTEND Surgery Plastic and Reconstructive Surgery
DX: E66.01 Morbid (severe) obesity due to excess calories (principal); E89.1 Postprocedural hypoinsulinemia; K90.89 Other intestinal malabsorption; D50.8 Other iron deficiency anemias; K74.1 Hepatic sclerosis; N19 Unspecified kidney failure; T56.894A Toxic effect of other metals, undetermined, initial encounter; K50.90 Crohn's disease, unspecified, without complications; Z68.42 Body mass index [BMI] 45.0-49.9, adult; Z71.3 Dietary counseling and surveillance
CPT/HCPCS: 84255; 84134; 84425; 80061; 80053; 82607; 82728; 82525; 82746; 83540; 83550; 83735; 84100; 84443; 84590; 84630; 85027; 85610; 85730; 84403; 82306; 83970; 83036; 97803; G0463; 99211

== ENCOUNTER → 2023-08-12 | Outpatient (CLI) | payer OTHER ==
--- NOTE | 2023-08-12 14:55 | P.BASOAP ---
Subjective Progress Note Date: 08/12/23 DATE OF SERVICE: 08/12/23 CHIEF COMPLAINT: Status post liver gastrectomy HISTORY OF PRESENT ILLNESS: Luis Manuel Gonzales is a 32-year-old male status post sleeve gastrectomy 01/26/2023. She 6 months postop. He has lost 100 pounds. He denies gastroesophageal reflux disease. He denies abdominal pain. He has gained some weight over the holidays. He denies dysphagia. He is getting under 50 grams of protein daily. At height of 5 feet 8 inches, ideal body weight is 163 pounds. His highest weight is 415 pounds, body mass index 63.2. He comes in 309 pounds from 402 pounds, 8 months ago. He has lost 93 pounds in 8 months. His body mass index is 63.2. His highest weight is 106 pounds. Percent excess lifetime weight loss of 42%. He is 146 pounds overweight. PAST MEDICAL HISTORY: 1. Morbid obesity due to excess calories, BMI 61.3 2. Asthma PAST SURGICAL HISTORY: 1. No abdominal surgeries HOME MEDICATIONS: Home Medications Medication Instructions Recorded Confirmed Ergocalciferol [Vitamin D2 (1250 50,000 unit PO WEEKLY 03/10/23 08/12/23 Mcg = 67838 Iu)] Vitamin A 10,000 unit PO DAILY 03/10/23 08/12/23 Multivitamins, Thera [Multivitamin 1 tab PO DAILY 08/18/23 08/18/23 (formulary)] ALLERGIES: Allergies Allergy/AdvReac Type Severity Reaction Status Date / Time No Known Allergies Allergy Verified 01/30/23 09:32 SOCIAL HISTORY: Denies tobacco use. FAMILY HISTORY: No family history of ulcerative colitis disease or Crohn's disease. Family history of morbid obesity. No lupus in the family. No reports of stomach or esophageal cancer. REVIEW OF ORGAN SYSTEMS: CONSTITUTIONAL:At height of 5 feet 8 inches, her ideal body weight is 163 pounds. His highest weight is 415 pounds, body mass index 63.2. He comes in 402 pounds. His body mass index is 61.3. He is 239 pounds overweight. HEENT: Denies any active troubles with vision or hearing. ENDOCRINE: Denies diabetes. Denies hypothyroidism. CARDIOVASCULAR: Denies past reports of palpitations or heart attacks or chest pain. RESPIRATORY: Has asthma. GASTROINTESTINAL: Denies any bright red blood per rectum. No diarrhea. No constipation. Has gastroesophageal reflux disease. GENITOURINARY: Denies bladder urgency. No recent blood in urine MUSCULOSKELETAL: Has lower back pain and joint pain. NEURO: Denies migraines. No seizure disorders. PSYCH: Denies depression. No suicidal ideation. RHEUMATOLOGIC: No lupus. No rheumatoid arthritis. HEMATOLOGIC: Denies any abnormal bleeding or bruising. Denies past history of DVTs. SKIN: No rash. No skin cancer. PHYSICAL EXAM: VITAL SIGNS: Height 5 foot 8 inches, weight 309 pounds. BMI 47.0 Vital Signs Temp 98 F 08/12/23 14:47 Pulse 83 08/12/23 14:47 Resp BP 141/77 08/12/23 14:47 Pulse Ox FiO2 GENERAL: Well-developed in no acute distress. HEENT: No scleral icterus. Extraocular movements grossly intact. Hears conversational speech. No nasal drainage. NECK: Supple without lymphadenopathy. CHEST: Nonlabored respirations with equal bilateral excursions. CARDIOVASCULAR: Regular rate and rhythm. Distal 2+ pulses. ABDOMEN: Obese, soft, nontender, nondistended. MUSCULOSKELETAL: No clubbing, cyanosis. NEURO: No focal or lateralizing signs. Cranial nerves 2 through 12 grossly within normal limits. PSYCH: Appropriate affect. Alert and oriented to person, place and time. SKIN: Good skin turgor. Well perfused. ASSESSMENT: 1. Morbid obesity due to excess calories, BMI 63.2 to 47.0 2. Asthma 3. Diarrhea 4. Gastroparesis 5. Family history morbid obesity 6. Dietary surveillance and counseling PLAN: 1. Recommend bariatric labs 2. Recommend protein intake 80 to 100 g daily 3. Follow-up 9 months post op Objective - Vital Signs Vital signs: Vital Signs Temp 98 F 08/12/23 14:47 Pulse 83 08/12/23 14:47 Resp BP 141/77 08/12/23 14:47 Pulse Ox FiO2 Intake & Output 08/11/23 08/12/23 08/12/23 18:59 06:59 18:59 Weight 140.16 kg - Labs CBC & Chem 7: 08/12/23 15:38 08/12/23 15:38 Assessment/Plan Plan: Date: 08/12/23 Initial Weight: Initial BMI: Current Weight: 140.16 kg Current BMI: 47.0 Type of Surgery: Total Volume in Band: Previous Volume: Volume Removed: Volume Added: Band Size:
[2023-08-12 15:27] VITALS: BP 141/77; PULSE 83; TEMP 98; BMI 47.0
[2023-08-12 16:25] LABS: Partial Thromboplastin Time 28.2 sec (22.0-30.0); Prothrombin Time 11.2 sec (10.0-12.5)
[2023-08-12 18:26] LABS: HCT 42.5 % (39.6-50.0); HGB 14.6 g/dL (13.0-17.0); MCHC 34.4 g/dL (32.0-37.0); MCV 87.4 FL (80.0-97.0); Mean Platelet Volume 11.4 FL (9.5-12.2); NRBC Per 100 WBC 0 X 10*3/uL (0.00-0.01); Platelet Count 224 X 10*3/uL (140-440); RBC 4.86 X 10*6/uL (4.40-5.60); RDW 12.8 % (11.5-14.5); WBC 8.72 X 10*3/uL (4.50-10.00)
[2023-08-12 20:10] LABS: % Iron Saturation 19.73 (15.00-50.00); ALT 12 U/L (10-49); AST 16 U/L (14-35); Albumin 4.4 g/dL (3.8-4.9); Albumin/Globulin Ratio 1.83 Ratio (1.60-3.17); Alkaline Phosphatase 67 U/L (41-126); BUN/Creat Ratio 10.14 Ratio (12.00-20.00); Blood Urea Nitrogen 7.1 mg/dL (9.0-27.0); Calcium 9.5 mg/dL (8.7-10.3); Carbon Dioxide 26.8 mmol/L (21.6-31.8); Chloride 102 mmol/L (96-109); Chol/HDL Ratio 6.04 Ratio; Globulin 2.4 g/dL (1.6-3.3); Glucose 94 mg/dL (70-110); Iron 74 UG/DL (65-175); LDL Cholesterol,Calculated 113.8 mg/dL (0.0-131.0); Phosphorus 3.5 mg/dL (2.4-5.1); Potassium 4.6 mmol/L (3.5-5.5); Sodium 142 mmol/L (135-145); Total Bilirubin 0.6 mg/dL (0.3-1.2); Total Iron Binding Capacity 375 UG/DL (228-460); Total Protein 6.8 g/dL (6.2-8.2)
[2023-08-12 20:54] LABS: Prealbumin 22.6 mg/dL (18.0-42.0)
[2023-08-13 13:29] LABS: Zinc, Serum 94 ug/dL (60-130)
[2023-08-14 06:30] LABS: Vitamin A 44 ug/dL (38-106)
[2023-08-14 09:42] LABS: Vit B1(Thiamine) 66 ug/L (38-122)
[2023-08-15 20:58] LABS: Selenium 124 mcg/L (63-160)
== END ==
LOC: BARWHC3 13:49
PROVIDERS: ATTEND Surgery Plastic and Reconstructive Surgery
DX: E66.01 Morbid (severe) obesity due to excess calories (principal); D50.8 Other iron deficiency anemias; E55.9 Vitamin D deficiency, unspecified; K74.1 Hepatic sclerosis; N19 Unspecified kidney failure; T56.894A Toxic effect of other metals, undetermined, initial encounter; K50.90 Crohn's disease, unspecified, without complications; E89.1 Postprocedural hypoinsulinemia; K90.89 Other intestinal malabsorption; J45.909 Unspecified asthma, uncomplicated; R19.7 Diarrhea, unspecified; K31.84 Gastroparesis; Z71.3 Dietary counseling and surveillance; Z83.49 Family history of other endocrine, nutritional and metabolic diseases; Z68.42 Body mass index [BMI] 45.0-49.9, adult
CPT/HCPCS: 84255; 84134; 84425; 80061; 80053; 82607; 82728; 82525; 82746; 83540; 83550; 83735; 84100; 84443; 84590; 84630; 85027; 85610; 85730; 82306; 83970; 83036; 97802; G0463; 99211

== ENCOUNTER → 2024-11-01 | Outpatient (CLI) | payer OTHER ==
--- NOTE | 2024-11-02 09:14 | MR ---
EXAMINATION TYPE: MR knee LT wo con DATE OF EXAM: 11/01/2024 8:18 PM COMPARISON: 10/20/2024. CLINICAL INDICATION: Male, 34 years old with history of M25.562 LT KNEE PAIN, Left knee pain due to i njury x1 month TECHNIQUE: Multi planar, multi sequence imaging was performed of the knee including: Triplane proton density fat-saturated images and T1-weighted imaging. No Gadolinium was given. IV Contrast: mL (none if empty) FINDINGS: Medial meniscus: Intrasubstance tear of the meniscal body. High signal within the meniscus extend ing to the surface of the posterior horn compatible with horizontal tear. Medial femorotibial cartilage: There is high PD edema along the superficial and deep aspects of t he medial collateral ligament. Medial collateral ligament: Intact Lateral meniscus: Free edge fraying of the meniscal body. No displaced tear visualized. Lateral femorotibial cartilage: Grade-III chondromalacia. Lateral collateral ligament complex: There is somewhat tortuous course of the LCL as it extends i nferiorly towards ty fibular head series 501 image 24. Not definitively visualized attaching either . Patellofemoral alignment: Normal Patellofemoral cartilage: Deep fissuring without full-thickness defect.. Extensor mechanism: Intact. Joint/bursal fluid: Small to moderate joint effusion. Muscles/tendons: The patellar tendon, quadriceps tendon, IT band, pes anserinus tendons, semimembrano daniel tendon, popliteus tendon, and biceps femoris tendon are all within normal limits. Bone marrow: Normal. Anterior cruciate ligament: Intact. Posterior cruciate ligament: Intact. Soft tissues: Prepatellar subcutaneous edema along the anterior leg. IMPRESSION: 1. High-grade tear of the lateral collateral ligament complex near its insertion onto the fibula wit h slightly tortuous course. 2. Medial collateral ligament grade 2 sprain. 3. Medial meniscus posterior horn horizontal tear. 4. Lateral meniscus free edge fraying 5. The ACL and PCL are intact. 6. Moderate joint effusion. [facility], , 11/02/2024 9:12 AM
== END | disposition home or self-care (01) ==
LOC: RADMRIMAIN 20:15
PROVIDERS: ATTEND Orthopaedic Surgery
DX: S83.412A Sprain of medial collateral ligament of left knee, initial encounter (principal); S83.242A Other tear of medial meniscus, current injury, left knee, initial encounter; M25.462 Effusion, left knee

== ENCOUNTER → 2024-11-16 | Outpatient (CLI) | payer OTHER ==
[2024-11-16 10:00] LABS: African American GFR (CKD) >90 (>60 ml/min/1.73 sqM); Anion Gap 6 mmol/L; Blood Urea Nitrogen 11 mg/dL (9-20); Calcium 9.1 mg/dL (8.4-10.2); Carbon Dioxide 29 mmol/L (22-30); Chloride 100 mmol/L (98-107); Glucose 109 mg/dL (74-99); Non-African American GFR(CKD) >90 (>60 ml/min/1.73 sqM); Potassium 3.7 mmol/L (3.5-5.1); Sodium 135 mmol/L (137-145)
[2024-11-16 15:53] LABS: Basophils # (A) 0.04 X 10*3/uL (0.00-0.10); Basophils % (A) 0.4 %; Eosinophils # (A) 0.15 X 10*3/uL (0.04-0.35); Eosinophils % (A) 1.4 %; HCT 42.8 % (39.6-50.0); HGB 14.1 g/dL (13.0-17.0); Lymphocytes # (A) 3.02 X 10*3/uL (0.90-5.00); Lymphocytes % (A) 28.8 %; MCH 29.7 pg (27.0-32.0); MCHC 32.9 g/dL (32.0-37.0); MCV 90.3 FL (80.0-97.0); Mean Platelet Volume 12.7 FL (9.5-12.2); Monocytes % (A) 5.7 %; NRBC Per 100 WBC 0 X 10*3/uL (0.00-0.01); Neutrophils # (A) 6.62 X 10*3/uL (1.80-7.70); Neutrophils % (A) 63.3 %; Platelet Count 211 X 10*3/uL (140-440); RBC 4.74 X 10*6/uL (4.40-5.60); RDW 12.5 % (11.5-14.5); WBC 10.47 X 10*3/uL (4.50-10.00)
== END | disposition home or self-care (01) ==
LOC: LABPAT 09:19
PROVIDERS: ATTEND Orthopaedic Surgery
DX: Z01.812 Encounter for preprocedural laboratory examination (principal); M23.92 Unspecified internal derangement of left knee
CPT/HCPCS: 36415; 80048; 85025

== ENCOUNTER 2024-11-22 11:31 | Day surgery (SDC) | payer OTHER ==
--- NOTE | 2024-11-21 08:11 | P.HPOR ---
History of Present Illness H&P Date: 11/21/24 Chief Complaint: Left knee pain The patient is a 34-year-old male who presents with left knee pain after an injury October 07, 2024. He slipped on the ice and twisting his knee. He has had pain and buckling ever since. He has tried medications without much relief. He notes daily pain that limits him. Review of Systems Per HPI Past Medical History Past Medical History: Asthma Additional Past Medical History / Comment(s): No medications needed for Asthma. Obesity History of Any Multi-Drug Resistant Organisms: None Reported Past Surgical History: Bariatric Surgery Additional Past Surgical History / Comment(s): EGD. sleeve 01/26 Past Anesthesia/Blood Transfusion Reactions: No Reported Reaction Smoking Status: Never smoker - Past Family History Mother Family Medical History: No Reported History Medications and Allergies Home Medications Medication Instructions Recorded Confirmed Type No Known Home Medications 11/17/24 11/17/24 History Allergies Allergy/AdvReac Type Severity Reaction Status Date / Time No Known Allergies Allergy Verified 11/17/24 10:19 Physical Examination - Knee left Appearance: effusion Effusion grade: grade 2 Tenderness with palpation: anterior, medial Pain: throughout ROM Gait: limping ROM: extension: -10 degrees ROM: flexion: 110 degrees Crepitus with motion: Yes Strength: extension: 5/5 Strength: flexion: 5/5 Meniscal tests: medial meniscal tests: positive, medial joint line pain: positive Results The patient is a well-developed well-nourished male approximately 5 foot 8, 319 pounds of endomorphic habitus. HEENT exam is nonfocal, neck is supple. He has painless passive motion of the left hip. Straight leg raise is negative. He is tender about the medial joint line of the left knee. Collaterals are stable, Rema's negative, Nereyda's elicits medial pain. He has an antalgic gait pattern. His distal neurovascular appears intact in the left lower extremity. - Diagnostic results Knee MRI: image reviewed (MRI of the left knee shows evidence of an MCL and LCL sprain along with a posterior medial meniscal tear.) Assessment and Plan Assessment: Left knee internal derangement/symptomatic medial meniscal tear Obesity Plan: I talked to the patient at length regarding his condition along with treatment options. At this point he is quite symptomatic having pain and mechanical symptoms after this acute injury. After a thorough discussion he opts to proceed with surgery. We will plan to proceed with left knee arthroscopy with probable partial medial meniscectomy. Risks and benefits were discussed at length in layman's terms. We will likely perform that as an outpatient procedure.
[~2024-11-22 11:31] MED LIST changes: -CHLORHEXIDINE GLUCONATE 15 ML CUP MUCOUS MEM PRN; -DEXAMETHASONE SOD PHOSPHATE 4 MG/ML 1 ML VIAL IV ONE; -ENOXAPARIN 40 MG/0.4 ML SYRINGE SQ PRN; +LIDOCAINE 1% (10MG/ML) FOR IV START INTRADERMA PRN; -MIDAZOLAM 2 MG/2 ML VIAL IV PRN; -ONDANSETRON 4 MG/2 ML VIAL IVP ONE; -PANTOPRAZOLE 40 MG/10 ML VIAL IVP PRN; -SCOPOLAMINE 1 MG/72 HR PATCH TRANSDERM ONE; -ceFAZolin 3 GM in SODIUM CHLORIDE 0.9% 100 ML IVPB PRN
[2024-11-22] MEDS: IV FLUID CONTINUATION 1,000 ML IV ONE (12:09)
[2024-11-22] MEDS: ONDANSETRON 4 MG/2 ML VIAL IVP ONE (12:15)
[2024-11-22] MEDS: DEXAMETHASONE SOD PHOSPHATE 4 MG/ML 1 ML VIAL IV ONE (12:16)
[2024-11-22] MEDS: SCOPOLAMINE 1 MG/72 HR PATCH TRANSDERM STA (12:16)
[2024-11-22] MEDS: LACTATED RINGERS 1,000 ML IV SCH (12:16)
[2024-11-22] MEDS ORDERED: fentaNYL (PF) 50 MCG/ML 2 ML AMP ONE (12:32)
[2024-11-22] MEDS ORDERED: MIDAZOLAM 2 MG/2 ML VIAL ONE (12:32)
[2024-11-22] MEDS ORDERED: SUCCINYLCHOLINE CHLORIDE 200 MG/10 ML VIAL IV ONE (12:32)
[2024-11-22] MEDS ORDERED: LIDOCAINE 1% INJ 10MG/ML (20 ML MDV) ONE (12:32)
[2024-11-22] MEDS ORDERED: PROPOFOL 10 MG/ML 20 ML VIAL IV ONE (12:32)
[2024-11-22] MEDS: ceFAZolin 3 GM in SODIUM CHLORIDE 0.9% 100 ML IVPB PRN (12:37)
[2024-11-22] MEDS: EPINEPHrine (PF) 1 ML in SODIUM CHLORIDE 0.9% IRRIGATIO 3,000 ML IRRIGATION ONE (12:42)
--- NOTE | 2024-11-22 13:30 | P.OP ---
Date of Procedure: 11/22/24 Preoperative Diagnosis: Left knee internal derangement Postoperative Diagnosis: Left knee posterior medial meniscal tear Procedure(s) Performed: Left knee arthroscopic partial medial meniscectomy Anesthesia: GAGEA Surgeon: Yusef Sykes Estimated Blood Loss (ml): 10 Pathology: none sent Condition: stable Disposition: PACU Indications for Procedure: The patient is a 34-year-old male who presents with left knee pain and mechanical symptoms after an acute injury despite attempted conservative measures. A discussion of the risks benefits of operative intervention versus continued conservative measures was made with the patient. He opted to proceed with surgery. Operative risks include infection, neurovascular injury, development of blood clots, possible incomplete resolution of symptoms, possible worsening symptoms and need for subsequent procedures was discussed. Informed consent was obtained. Operative Findings: As below Description of Procedure: The patient was brought to the operating room, and after induction of general anesthesia examined the left knee. Collaterals were stable, Rema was negative, and posterior drawer was negative. The left lower extremity was prepped and draped in a normal fashion. A superior lateral portal was made through a 3 mm skin incision superior and lateral to the patella. This was used for outflow. A lateral portal was made through a 5 mm vertical skin incision lateral to the patella tendon above the joint line. Diagnostic arthroscopy was performed. On inspection of the medial compartment, a longitudinal tear involving the posterior horn of the medial meniscus in the whitered junction was noted. This was debrided back to stable base with straight baskets and a motorized shaver. The remaining medial meniscus was stable and intact. On inspection of the notch, the anterior cruciate ligament appeared to be intact. On inspection of the lateral compartment, grade 23 chondral changes were noted along the distal lateral femoral condyle. The lateral meniscus was stable and intact. On inspection of the patellofemoral articulation, there was some chondromalacia however no loose chondral fragments. The gutters were clear debris. The knee was then thoroughly irrigated. The portals were closed with Steri-Strips. A sterile dressing was applied in addition to a compression stocking. The patient was awoken from general anesthesia and transferred to recovery room in good condition. Blood loss was estimated at 10 mL. No complications were incurred.
[2024-11-22 13:49] VITALS: TEMP 97.1
[2024-11-22] MEDS: HYDROmorphone 0.5 MG/0.5 ML SYRINGE IVP PRN (13:52)
[2024-11-22 14:51] VITALS: RESP 18
[2024-11-22] MEDS: HYDROcodone/APAP 5-325MG 1 EACH TAB PO STA (14:59)
[2024-11-22 15:40] VITALS: BP 133/71; PULSE 84
== END 2024-11-22 16:25 | disposition home or self-care (01) ==
LOC: OR 11:31
PROVIDERS: ATTEND Orthopaedic Surgery
DX: S83.242A Other tear of medial meniscus, current injury, left knee, initial encounter (principal); J45.909 Unspecified asthma, uncomplicated; E66.9 Obesity, unspecified; Z79.899 Other long term (current) drug therapy; Z68.42 Body mass index [BMI] 45.0-49.9, adult; Z98.84 Bariatric surgery status; W00.0XXA Fall on same level due to ice and snow, initial encounter
CPT/HCPCS: 29881; J2250; J0330; J1100; J0690; J2405; J0171; J2003; J3010; J2704; J1171